=== PATIENT | male | born 1930 | race Caucasian/White ===

== ENCOUNTER 2016-03-11 11:32 | Inpatient (IN) | payer OTHER ==
--- NOTE | 2016-03-11 12:04 | CPEKG ---
Heart Rate: 90 RR Interval: 667 P-R Interval: 204 QRSD Interval: 104 QT Interval: 368 QTC Interval: 451 P [place]: 28 QRS [place]: 84 T Wave [place]: -25 EKG Severity - ABNORMAL ECG - EKG Impression: SINUS RHYTHM EKG Impression: PROBABLE ANTEROSEPTAL INFARCT, AGE INDETERM EKG Impression: BORDERLINE T ABNORMALITIES, INFERIOR LEADS Electronically Signed By: Yan Tracy 11-Mar-2016 13:33:18
[2016-03-11] MEDS ORDERED: MAALOX/LIDO/HYOSC GI COCKTAIL 55 ML BOTTLE PO ONE (12:44)
[2016-03-11] MEDS ORDERED: NS 500 ML IV ONE (12:44)
[2016-03-11 12:49] LABS: % IMMATURE GRANULYOCYTES 0.3 % (0.0-1.1); ABSOLUTE IMMATURE GRANULOCYTES 0.02 10^3/uL (0.00-0.10); ADD DIFF? NO; ADD MORPH? NO; ADD SCAN? NO; ATYPICAL LYMPHOCYTE FLAG 20 (0-99); FRAGMENT RBC FLAG 0 (0-99); HEMATOCRIT 46.8 % (40.0-51.0); HEMOGLOBIN 15.7 g/dL (13.7-17.5); LEFT SHIFT FLG 0 (0-99); LIPEMIA HEMOLYSIS FLAG 80 (0-99); MEAN CELL HEMOGLOBIN 25.9 pg (27.9-34.1); MEAN CELL HEMOGLOBIN CONCENTR. 33.5 g/dL (32.4-36.7); MEAN CELL VOLUME 77.2 fL (81.5-99.8); MEAN PLATELET VOLUME 9.2 fL (8.7-11.7); PLATELET CLUMPS FLAG 0 (0-99); PLATELET COUNT 298 10^3/uL (150-400); RED BLOOD CELL COUNT 6.06 10^6/uL (4.40-6.38); RED CELL DISTRIBUTION WIDTH 16.5 % (11.5-15.2)
[2016-03-11 13:00] LABS: ALANINE AMINOTRANSFERASE 28 IU/L (21-72); ALBUMIN 4.3 g/dL (3.5-5.0); ALKALINE PHOSPHATASE 96 IU/L (38-126); ANION GAP 13 mEq/L (8-16); ASPARTATE AMINOTRANSFERASE 21 IU/L (17-59); BILIRUBIN,TOTAL 0.7 mg/dL (0.1-1.4); BILIRUBIN-CONJUGATED 0.6 mg/dL (0.0-0.5); BILIRUBIN-UNCONJUGATED 0.1 mg/dL (0.0-1.1); CALCIUM 9.2 mg/dL (8.5-10.4); CARBON DIOXIDE 23 mEq/l (22-31); CHLORIDE 107 mEq/L (97-110); CREATININE 0.8 mg/dL (0.7-1.3); GLOMERULAR FILTRATION RATE > 60; GLUCOSE 132 mg/dL (70-100); POTASSIUM 4.1 mEq/L (3.5-5.2); SODIUM 143 mEq/L (134-144); TOTAL PROTEIN 7.8 g/dL (6.3-8.2)
[2016-03-11] MEDS ORDERED: IOPAMIDOL (ISOVUE-300) 100 ML BTL IV ONE (13:07)
[2016-03-11 13:11] LABS: TROPONIN I < 0.012 ng/mL (0-0.034)
--- NOTE | 2016-03-11 13:22 | EDPHY ---
H & P Stated Complaint: ABDOMINAL, CHEST, AND BACK PAIN SINCE 1 PM YESTERDAY Time Seen by Provider: 03/11/16 12:07 HPI/ROS: CHIEF COMPLAINT: Fatigue, heartburn, burping, abdominal pain HISTORY OF PRESENT ILLNESS: This is an 85-year-old male tells me has a history of acid reflux. He has not been bothered by his acid reflux since 2011. Sounds like he has not seen Gastroenterology for a number of years. He describes developing episodes of "reflux" with discomfort into his chest, a feeling that his esophagus is blocked, and multiple burping and urping episodes since yesterday. This has occurred 7 or 8 times. Yesterday he also had 3 brief episodes of a shooting pain on the left side of his chest. Patient also describes left-sided abdominal discomfort which he feels is similar to his diverticulitis. He reports 5 large bowel movements yesterday. No history of known coronary artery disease. Patient's last stress test was about 10 years ago. Heartburn symptoms are not accompanied by shortness of breath, palpitations, lightheadedness, or dizziness. He has had no vomiting or diarrhea. No urinary complaints. REVIEW OF SYSTEMS: Aside from elements discussed in the HPI, a comprehensive 10-point review of systems was reviewed and is negative. PAST MEDICAL HISTORY: Acid reflux, diverticulitis, hip replacement. Denies hypertension, hypercholesterolemia, or smoking. Denies diabetes. 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 VITAL SIGNS Reviewed by me. GENERAL: Slightly overweight,resting comfortably in no respiratory distress. HEENT: Atraumatic. Eyes: No icterus, no injection. Mouth: moist mucous membranes. No erythema or lesions. Neck: supple with no adenopathy. LUNGS: Clear to auscultation bilaterally, no wheezes, rhonchi or rales. CARDIAC: Regular rate and rhythm, no rubs, murmurs or gallops. ABDOMEN: No abdominal tenderness to palpation. No epigastric tenderness or right upper quadrant tenderness. Patient indicates that there was pain in the left lower quadrant which is now resolved. Bowel sounds normal. BACK: No CVA tenderness. EXTREMITIES: No trauma. No edema. Range of motion is normal throughout. NEURO: Alert and oriented, grossly nonfocal. SKIN: Warm and dry, no rash. PSYCHIATRIC: Normal mentation, no agitation. - Personal History Current Tetanus/Diphtheria Vaccine: No - Medical/Surgical History Hx Asthma: Yes Hx Chronic Respiratory Disease: No Hx Diabetes: No Hx Cardiac Disease: No Hx Renal Disease: No Hx Cirrhosis: No Hx Alcoholism: No Hx HIV/AIDS: No Hx Splenectomy or Spleen Trauma: No Other PMH: R HIP REPLACEMENT, DIVERTICULITIS, - Social History Smoking Status: Never smoked Constitutional: Initial Vital Signs Temperature (C) 36.9 C 03/11/16 11:47 Heart Rate 94 03/11/16 11:47 Respiratory Rate 16 03/11/16 11:47 Blood Pressure 122/94 H 03/11/16 11:47 O2 Sat (%) 93 03/11/16 11:47 O2 Delivery Mode Room Air Allergies/Adverse Reactions: Sulfa (Sulfonamide Antibiotics) Allergy (Verified 03/11/16 11:51) Home Medications: Medication Instructions Recorded ALPRAZolam [Xanax 0.25 MG (*)] 0.125 mg PO HS PRN 03/16/15 Levothyroxine [Synthroid 200 mcg 200 mcg PO DAILY06 03/16/15 (*)] Nortriptyline HCl [Pamelor 25 mg 25 mg PO HS 03/16/15 (*)] Docusate Sodium [Colace 100 MG (*)] 100 mg PO BID #60 cap 04/16/15 Aspirin EC [Aspirin EC 81 mg (*)] 81 mg PO DAILY 03/11/16 Ibuprofen [Motrin (*)] 400 mg PO HS 03/11/16 Testosterone [ANDROGEL 1% 5gm pkt 5 gm TD DAILY 03/11/16 (*)] oxyCODONE/APAP 5/325 [Percocet 1 tab PO DAILY PRN 03/11/16 5/325 (*)] Acetaminophen [Tylenol 325mg (*)] 650 mg PO Q4HRS PRN #0 tab 03/13/16 Medical Decision Making - Diagnostics EKG Interpretation: 12-LEAD EKG: Please see the full report in [facility]. My interpretation: Sinus rhythm, borderline T-wave abnormalities inferiorly Imaging: Results: CT scan of the abdomen pelvis was obtained. I viewed the images independently on the PACS system. I discussed the results of the study with the radiologist. Impression: Small bowel obstruction in the distal jejunum. Please see the full radiology report. ED Course/Re-evaluation: 85-year-old male presenting with a constellation of symptoms including acid reflux", burping, burping, and left-sided abdominal pain. Patient is also complaining of fatigue which is unusual for him. Patient's EKG demonstrates sinus rhythm with borderline T-wave abnormalities inferiorly. Laboratory evaluation is largely unremarkable with normal lipase, normal troponin, normal LFTs, normal CBC. Abdominal CT scan: Small bowel obstruction per Dr. Aguirre. CT scan results explained to the patient and his . Dr. Chet Walker was consulted. He evaluated the patient in the emergency department as well as reviewed the CT findings. Dr. Walker will admit the patient to the hospital for further observation of his abdominal discomfort, belching, nausea. Differential Diagnosis: After obtaining the patient's history and performing an examination, differential diagnosis considered included but was not limited to bowel obstruction, pancreatitis, reflux, cholecystitis, gastritis, coronary artery disease, diverticulitis, ileus. - Data Points Laboratory Results: Laboratory Results 03/11/16 12:01 03/12/16 05:26 Medications Given: Discontinued Medications Alprazolam (Xanax) 0.125 mg PO HS PRN PRN Reason: Sleep/Insomnia Last Admin: 03/11/16 21:26 Dose: 0.125 mg Aspirin Buffered (Aspirin Ec) 81 mg PO DAILY [place] Stop: 09/08/16 08:59 Last Admin: 03/13/16 08:24 Dose: 81 mg Sodium Chloride (Ns) 500 mls @ 0 mls/hr IV ONCE ONE PRN Reason: As Directed Stop: 03/11/16 12:45 Last Admin: 03/11/16 13:11 Dose: 500 mls Potassium Chloride/Sodium Chloride (Ns W/ 20 Kcl/L) 1,000 mls @ 50 mls/hr IV CONT [place] Stop: 09/07/16 15:59 Last Admin: 03/11/16 19:53 Dose: 1,000 mls Sodium Chloride (Ns) 500 mls @ 0 mls/hr IV ONCE ONE PRN Reason: As Directed Stop: 03/12/16 15:31 Last Admin: 03/12/16 07:30 Dose: 500 mls Sodium Chloride (Ns) 500 mls @ 500 mls/hr IV ONCE ONE Stop: 03/12/16 17:59 Last Admin: 03/12/16 16:44 Dose: 500 mls Miscellaneous Medication (Gi Cocktail) 55 ml PO EDNOW ONE Stop: 03/11/16 12:45 Last Admin: 03/11/16 13:11 Dose: 55 ml Pantoprazole Sodium (Protonix) 40 mg PO ONCE ONE Stop: 03/11/16 15:52 Last Admin: 03/11/16 17:48 Dose: 40 mg Departure - Departure Disposition: [facility] Inpatient Acute Clinical Impression: Abdominal pain, Left lower quadrant abdominal tenderness, Anorexia, rule out bowel obstruction Condition: Good
--- NOTE | 2016-03-11 13:48 | CT ---
CT Scan of the Abdomen and Pelvis (With Contrast) 13:20 hours Clinical Indications: Abdominal pain. History of diverticulitis. Technique: Administration of 90 mL of Isovue-300 IV contrast, helical CT images were performed from t he diaphragm to the symphysis pubis. Images were reconstructed down to 1.25 mm slice thickness. Dose reduction techniques were utilized. Findings: There is prominent fluid in the stomach. The mid and distal jejunum is dilated measuring up to 4.1 cm in diameter. A discrete transition zone is not identified but there appear to be 2 or 3 ar eas of focal small bowel narrowing without mass. There is no adenopathy. There is no free air or free fluid. The lung bases are clear. The liver, spleen, gallbladder, bile ducts, pancreas, adrenals, and kidneys are normal in appearance. The aorta tapers normally. Images through the pelvis demonstrate no masses, free fluid, or free air. There is diverticulosis pre dominating in the descending and sigmoid colons without evidence for diverticulitis. There is a sasha l short appendix. Urinary bladder is unremarkable. The soft tissues are normal in appearance. There i s atherosclerotic change of the normal sized abdominal aorta. The common iliac arteries are tortuous and mildly dilated, the right measuring 21 mm in diameter and the left 19 mm in diameter. 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 The patient h as a right hip replacement. Impression: 1. Early or partial distal jejunal obstruction. This patient may benefit from an NG tube. 2. Diverticulosis without evidence of diverticulitis. Results called to Dr. Casey.
--- NOTE | 2016-03-11 13:58 | DX ---
PA and lateral chest x-ray 1237 hours. History: Chest pain and dizziness. Findings: Comparison to August 29, 2011. Heart size and pulmonary vasculature are within normal limits. There is no consolidation, effusion, o r pneumothorax. Degenerative changes are present mid to lower thoracic spine. Impression: 1. No active cardiopulmonary disease seen. No change since prior study.
[2016-03-11] MEDS ORDERED: ONDANSETRON 4 MG/2 ML VIAL IVP PRN (15:46)
[2016-03-11] MEDS ORDERED: ACETAMINOPHEN 325 MG TAB PO PRN (15:46)
[2016-03-11] MEDS ORDERED: ONDANSETRON DISINTEGRATING 4 MG TAB PO PRN (15:46)
[2016-03-11] MEDS ORDERED: PANTOPRAZOLE SODIUM 40 MG TAB PO ONE (15:51)
[2016-03-11] MEDS ORDERED: NS W/ 20 KCl/L 1,000 ML IV SCH (16:00)
[2016-03-11] MEDS ORDERED: ALPRAZolam 0.25 MG TAB PO PRN (16:14)
--- NOTE | 2016-03-11 16:21 | GHP ---
[f rep st] HISTORY AND PHYSICAL DATE OF ADMISSION: 03/11/2016 HISTORY OF PRESENT ILLNESS: This is an 85-year-old gentleman, who presents with 24 hours of mid to l eft-sided abdominal pain and reflux. The patient has had previous history of small-bowel obstruction treated conservatively 5 years ago, history of diverticulosis managed non operatively. His pain and problems began at noon yesterday, and he has had continued reflux with mild anorexia since then. CT scan shows a possible transition point in the mid jejunum. The patient denies any nausea or vomitin g. He has had 4 or 5 bowel movements today. PAST MEDICAL HISTORY: Significant for hypothyroidism, mild chronic pain, diverticulosis, anxiety/dep ression. PAST SURGICAL HISTORY: Includes appendectomy remotely. FAMILY HISTORY: Noncontributory. 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 The patie nt denies any alcohol or drug use. ALLERGIES: Sulfa, for which he gets a rash. MEDICATIONS AT HOME: Alprazolam 0.25 mg q.h.s. p.r.n., aspirin 81 mg p.o. daily, Colace 100 mg p.o. b.i.d., ibuprofen 400 mg q.h.s. p.r.n., levothyroxine 200 mg p.o. daily, nortriptyline 25 mg p.o. q.h .s., testosterone 5 g transdermal daily, and oxycodone p.r.n. REVIEW OF SYSTEMS: NEUROLOGIC: Significant for having some mild change in vision last night, which has cleared. GENITOURINARY: Mild urinary retention for which he sees a urologist on a regular basis. He was otherwise in his baseline state of health until yesterday. Review of systems otherwise negati ve. EXAM: VITAL SIGNS: The patient has temperature of 36.9, heart rate of 87, blood pressure 121/96, re spiratory rate of 16, saturating 94% on room air. HEENT: Sclerae anicteric. His pupils are 2 mm, equal. Extraocular motions intact. His oropharynx is slightly dry. NECK: No JVD, thyromegaly, supraclavicular adenopathy. LUNGS: Clear bilaterally. HEART: Regular heart tones, S1 and S2. ABDOMEN: Soft, minimally tender in the left lower quadrant. No rebound. No masses. Well-healed schmitt rgical scar from previous appendectomy. EXTREMITIES: Without edema. He has 2+/2+ radial, brachial, carotid, femoral, and dorsalis pedis pul ses. SKIN: He has normal skin turgor and tone. NEUROLOGIC: He is alert and oriented. He walks well with the aid of a cane. He otherwise looks goo d for his stated age. IMPRESSION: After reviewing all of his laboratory studies, is that of a small bowel obstruction, mil d hyperglycemia, blood sugar of 132, microcytic anemia, longstanding. PLAN: Admit. Clear liquids. Observation. Serial exams. Small bowel follow through if he does not clear up by tomorrow. Protonix for his history of GERD. No DVT prophylaxis is necessary at this ti ia. /[id number]/MODL
[2016-03-12 06:12] LABS: ANION GAP 8 mEq/L (8-16); CARBON DIOXIDE 23 mEq/l (22-31); CHLORIDE 108 mEq/L (97-110); CREATININE 0.7 mg/dL (0.7-1.3); GLOMERULAR FILTRATION RATE > 60; GLUCOSE 138 mg/dL (70-100); POTASSIUM 4.2 mEq/L (3.5-5.2); SODIUM 139 mEq/L (134-144)
[2016-03-12 07:38] VITALS: RESP 16
--- NOTE | 2016-03-12 08:05 | SOAPPROG ---
SOAP Progress Note Assessment/Plan: Assessment/Plan: 85 yo man initially admitted for s/s of sbo Now with clinical signs of gastroenteritis. Vomiting and diarrhea overnight Unable to tolerate po OOB to commode RRR CTA Abd soft min tender LLQ no rebound No peripheral edema K4.2 Cr ).7 BS 130s Continue hydration advance diet as able Anticipate additional 24 -48 hr stay 500ml NS bolus 03/12/16 08:02 Objective: Vital Signs Temp Pulse Resp BP Pulse Ox 36.9 C 86 16 122/77 H 96 03/12/16 07:36 03/12/16 07:36 03/12/16 07:36 03/12/16 07:36 03/12/16 07:36 Laboratory Results 03/12/16 05:26 03/11/16 03/12/16 03/13/16 05:59 05:59 05:59 Intake Total 1720 Balance 1720 ICD10 Worksheet Patient Problems: Problems Problem Status Diagnosed Abdominal pain Acute Anorexia Acute Left lower quadrant abdominal tenderness Acute Primary localized osteoarthritis of right hip Acute
[2016-03-12] MEDS: ASPIRIN EC 81 MG TAB PO SCH (09:23)
[2016-03-12 15:23] VITALS: PULSE 78
[2016-03-12] MEDS ORDERED: NS 500 ML IV ONE ×2 (15:30→17:00)
[2016-03-13 08:23] VITALS: BP 130/81; TEMP 98; O2SAT 96
[2016-03-13] MEDS: ASPIRIN EC 81 MG TAB PO SCH (08:24)
--- NOTE | 2016-03-13 09:44 | SOAPPROG ---
SOAP Progress Note Assessment/Plan: Assessment:feeling better. no further nausea or vomiting. bm normalizing. avss. abd dist, soft, nontender. doing better. home today. Plan: 03/13/16 09:42 Objective: Vital Signs Temp Pulse Resp BP Pulse Ox 36.6 C 78 16 130/81 H 96 03/13/16 08:22 03/13/16 08:22 03/13/16 08:22 03/13/16 08:22 03/13/16 08:22 03/12/16 03/13/16 03/14/16 05:59 05:59 05:59 Intake Total 2700 Balance 2700 ICD10 Worksheet Patient Problems: Problems Problem Status Diagnosed Abdominal pain Acute Anorexia Acute Left lower quadrant abdominal tenderness Acute Primary localized osteoarthritis of right hip Acute
--- NOTE | 2016-03-13 10:00 | GDS ---
[f rep st] DISCHARGE SUMMARY REASON FOR ADMISSION: Abdominal pain. HOSPITAL COURSE: 85-year-old male who presented to the emergency room with a 24 -hour history of progressive abdominal pain. Imaging studies disclosed concerns for a possible partial small bowel obstruction. His clinical story was more consistent with a gastroenteritis. He was admitted for serial abdominal exams, fluid resuscitation, and pain control. He had a rapidly improving hospital course. He was discharged to home on the in improved condition, tolerating a regular diet without resolution of his symptoms. He will be seen in followup on an as-needed basis by the surgical service. He is to resume all pre- hospital medications. He was given a regular diet. Full instructions were explained prior to leaving. /[id number]/MODL MTDD
== END 2016-03-13 10:40 | disposition home or self-care (01) | DRG 392 ==
LOC: F1N 15:24 → OBSVTOIN 03-12 08:01
PROVIDERS: ADMIT Surgery; ATTEND Surgery
DX: K52.9 Noninfective gastroenteritis and colitis, unspecified (principal); E03.9 Hypothyroidism, unspecified
CPT/HCPCS: G0378; Q9967

== ENCOUNTER 2016-03-21 17:41 | Emergency (ER) | payer OTHER ==
[2016-03-21] MEDS ORDERED: OXYCODONE/APAP 5/325 TAB PO ONE (18:27)
--- NOTE | 2016-03-21 18:27 | EDPHY ---
H & P Time Seen by Provider: 03/21/16 18:04 HPI/ROS: CHIEF COMPLAINT: Severe right wrist and shoulder pain HISTORY OF PRESENT ILLNESS: 85-year-old male presents with severe right wrist and shoulder pain. 3 days ago, he went to physical therapy and he did some exercises with his right shoulder. Since then he has had gradually increasing right shoulder pain. The pain is moderate and is temporarily relieved with oxycodone. This morning he developed right wrist pain, which seems to be unrelated to the right shoulder pain. The right wrist pain is severe and increases with any movement of his right wrist. Minimal relief with oxycodone and ibuprofen. He was recently admitted with gastroenteritis. No prior history of gout or joint infection. No fever. REVIEW OF SYSTEMS: Constitutional: No fever, no chills Eyes: No visual changes ENT: No sore throat Respiratory: No cough, no shortness of breath Cardiac: No chest pain Gastrointestinal: No nausea, no vomiting, no abdominal pain Genitourinary: No hematuria, no dysuria Skin: No rash Neurological: No headache, no numbness, no weakness Psychiatric: No depression Past Medical/Surgical History: Right hip replacement Social History: Smoking Status: Never smoked Physical Exam: General Appearance: Alert, pleasant Eyes: Pupils equal and round, no conjunctival pallor ENT, Mouth: Mucous membranes moist Neck: Normal inspection Respiratory: Lungs are clear to auscultation Cardiovascular: Regular rate and rhythm Gastrointestinal: Abdomen is soft and nontender Neurological: A&O, nonfocal, normal gait Skin: Warm and dry, no rash Extremities: right upper extremity-normal inspection, limited right shoulder range of motion, but no tenderness over the shoulder; right elbow--range of motion without pain; right wrist-very faint erythema over the distal ulnar styloid process, mild swelling, pain with range of motion of the right wrist Vascular: 2+ radial pulses, capillary refill brisk Psychiatric: Mood and affect normal Constitutional: Initial Vital Signs Temperature (C) 36.6 C 03/21/16 17:46 Heart Rate 86 03/21/16 17:46 Respiratory Rate 18 03/21/16 17:46 Blood Pressure 152/88 H 03/21/16 17:46 O2 Sat (%) 94 03/21/16 17:46 O2 Delivery Mode Room Air Allergies/Adverse Reactions: Sulfa (Sulfonamide Antibiotics) Allergy (Unknown, Verified 03/21/16 17:46) Home Medications: Medication Instructions Recorded ALPRAZolam [Xanax 0.25 MG (*)] 0.125 mg PO HS PRN 03/16/15 Levothyroxine [Synthroid 200 mcg 200 mcg PO DAILY06 03/16/15 (*)] Nortriptyline HCl [Pamelor 25 mg 25 mg PO HS 03/16/15 (*)] Docusate Sodium [Colace 100 MG (*)] 100 mg PO BID #60 cap 04/16/15 Aspirin EC [Aspirin EC 81 mg (*)] 81 mg PO DAILY 03/11/16 Ibuprofen [Motrin (*)] 400 mg PO HS 03/11/16 Testosterone [ANDROGEL 1% 5gm pkt 5 gm TD DAILY 03/11/16 (*)] oxyCODONE/APAP 5/325 [Percocet 1 tab PO DAILY PRN 03/11/16 5/325 (*)] Acetaminophen [Tylenol 325mg (*)] 650 mg PO Q4HRS PRN #0 tab 03/13/16 oxyCODONE/APAP 5/325 [Percocet 1 - 2 tab PO Q4 PRN #20 tab 03/21/16 5/325 (*)] Medical Decision Making - Diagnostics Imaging: X-ray of the right shoulder and wrist independently reviewed by me reveals no acute fracture. Procedures: Procedure: Arthrocentesis right wrist Indication: Evaluation for the possibility of septic joint. Risks, benefits, alternatives of the procedure were discussed with the patient and consent obtained. The patient was prepped and draped in the usual sterile fashion over the right wrist joint. Local anesthesia was provided with 1% lidocaine. The joint space was entered with a 18 gauge needle and 3 cc of straw-colored fluid was obtained. There were no complications. The procedure was performed by myself. ED Course/Re-evaluation: Clinical presentation concerning for septic arthritis of the right wrist. Leukocytosis noted. X-ray is negative. Joint aspiration by me without complications. Synovial fluid reveals crystals, consistent with pseudogout. There was insufficient fluid to run a cell count; culture pending. Doubt associated infection, though will need to await cx results. Results were discussed with the patient and his . Toradol 15 mg IV given. The patient was placed in a Velcro volar wrist splint. Neurovasc intact after application. Percocet dispensed. He was instructed to follow up with his primary care physician. Has ortho appt, suspect shoulder pain is secondary to shoulder strain after PT and unreleated to pseudogout of wrist. Differential Diagnosis: Differential diagnosis includes does not limited to cellulitis, septic arthritis , gout, osteomyelitis. - Data Points Laboratory Results: Laboratory Results 03/21/16 18:30 03/21/16 18:30 Microbiology Results: MICROBIOLOGY 03/21/16 19:20 Wrist - Other Gram Stain - Final 03/21/16 19:20 Wrist - Other Body Fluid Culture - Preliminary Medications Given: Discontinued Medications Ketorolac Tromethamine (Toradol) 15 mg IVP EDNOW ONE Stop: 03/21/16 20:05 Last Admin: 03/21/16 20:27 Dose: 15 mg Oxycodone/Acetaminophen (Percocet 5/325) 1 tab PO EDNOW ONE Stop: 03/21/16 18:28 Last Admin: 03/21/16 18:33 Dose: 1 tab Oxycodone/Acetaminophen (Percocet 5/325mg Prepack#4) 1 btl TAKEHOME EDNOW ONE Stop: 03/21/16 20:33 Last Admin: 03/21/16 20:40 Dose: 1 btl Departure - Departure Disposition: Home, Routine, Self-Care Clinical Impression: Pseudogout of right wrist Condition: Good Instructions: Pseudogout (ED), Oxycodone/Acetaminophen (By mouth) Additional Instructions: Ibuprofen 600 mg 3-4 times daily while the pain persists. Take Percocet 1 tablet as needed every 4 hours for pain Referrals: Tanya Kahn MD [Primary Care Provider] - As per Instructions Prescriptions: oxyCODONE/APAP 5/325 [Percocet 5/325 (*)] 1 - 2 tab PO Q4 PRN #20 tab PRN Reason: pain
[2016-03-21 18:43] LABS: % IMMATURE GRANULYOCYTES 0.3 % (0.0-1.1); ABSOLUTE IMMATURE GRANULOCYTES 0.04 10^3/uL (0.00-0.10); ADD DIFF? NO; ADD MORPH? NO; ADD SCAN? NO; ATYPICAL LYMPHOCYTE FLAG 10 (0-99); FRAGMENT RBC FLAG 0 (0-99); HEMATOCRIT 44.4 % (40.0-51.0); HEMOGLOBIN 14.9 g/dL (13.7-17.5); LEFT SHIFT FLG 0 (0-99); LIPEMIA HEMOLYSIS FLAG 80 (0-99); MEAN CELL HEMOGLOBIN 25.7 pg (27.9-34.1); MEAN CELL HEMOGLOBIN CONCENTR. 33.6 g/dL (32.4-36.7); MEAN CELL VOLUME 76.7 fL (81.5-99.8); MEAN PLATELET VOLUME 8.8 fL (8.7-11.7); PLATELET CLUMPS FLAG 0 (0-99); PLATELET COUNT 367 10^3/uL (150-400); RED BLOOD CELL COUNT 5.79 10^6/uL (4.40-6.38); RED CELL DISTRIBUTION WIDTH 15.6 % (11.5-15.2)
--- NOTE | 2016-03-21 18:46 | DX ---
1. Right Shoulder , 3 Views History: Pain without trauma. Findings: There is severe osteoarthritic narrowing of the right AC joint. The humeral head is well ro unded and normally located. No fracture or dislocation is identified. Incidentally noted is facet de generative change in the right cervical spine. There is no soft tissue calcification adjacent to the shoulder. Overall mineralization is normal. Impression: 1. AC joint arthritis 2. Might the patient symptoms be referred from the cervical spine? 2. Right Wrist, 4 views including a navicular view History: Pain without trauma. Findings: No fracture or dislocation is identified. There is chondrocalcinosis of the triangular fib rocartilage and of the radial carpal and intercarpal cartilages. There is osteoarthritic change at th e base of the first metacarpal and involving the joint between the greater and lesser multangular bon es. There are 2 corticated ossicles posterior to the proximal carpal row and small ossicles along th e palmar aspect of the wrist that are likely the sequelae of remote trauma.. Incidentally noted is a small exostosis projecting laterally off the distal radial shaft. There is osteoarthritic narrowing o f the first metacarpal phalangeal joint and interphalangeal joint of the thumb. There is a prominent spur of the radial side of the fifth metacarpal head. No erosions are seen. Overall mineralization is normal. Impression: 1. Prominent chondrocalcinosis. Evaluate for CPPD or other hypercalcemic states. 2. Likely remote trauma to the wrist. 3. Osteoarthritic changes described above.
[2016-03-21 19:03] LABS: ANION GAP 14 mEq/L (8-16); CALCIUM 9.4 mg/dL (8.5-10.4); CARBON DIOXIDE 19 mEq/l (22-31); CHLORIDE 104 mEq/L (97-110); CREATININE 0.7 mg/dL (0.7-1.3); GLOMERULAR FILTRATION RATE > 60; GLUCOSE 121 mg/dL (70-100); POTASSIUM 4.8 mEq/L (3.5-5.2); SODIUM 137 mEq/L (134-144)
[2016-03-21 19:08] LABS: SEDIMENTATION RATE 14 MM/HR (0-20)
[2016-03-21 19:46] VITALS: RESP 16
[2016-03-21] MEDS ORDERED: KETOROLAC 30 MG/1 ML SDV IVP ONE (20:04)
[2016-03-21] MEDS ORDERED: OXYCODONE/APAP 5/325MG PREPACK#4 BTL TAKEHOME ONE (20:32)
[2016-03-21 20:55] VITALS: BP 129/84; PULSE 79; TEMP 97.9; O2SAT 93
== END 2016-03-21 21:08 | disposition home or self-care (01) ==
PROC: 0R9N3ZZ Drainage of Right Wrist Joint, Percutaneous Approach (ICD-10-PCS; principal; 2016-03-21)
DX: M10.9 Gout, unspecified (principal); Z79.82 Long term (current) use of aspirin
CPT/HCPCS: 20605; 73030; 73110; 96374; 99284; J1885; L3908

== ENCOUNTER 2016-07-19 11:12 | Emergency (ER) | payer OTHER ==
[2016-07-19 11:21] VITALS: TEMP 98.2
[2016-07-19 12:16] VITALS: RESP 16
[2016-07-19] MEDS ORDERED: HYDROmorphONE/DILAUDID 1 MG/ML SYR IVP ONE (12:32)
[2016-07-19] MEDS ORDERED: KETOROLAC 30 MG/1 ML SDV IVP ONE (12:32)
[2016-07-19] MEDS ORDERED: NS 500 ML IV ONE (12:32)
[2016-07-19] MEDS ORDERED: DEXAMETHASONE 10 MG/ML VIAL IVP ONE (12:33)
--- NOTE | 2016-07-19 14:41 | EDPHY ---
H & P Time Seen by Provider: 07/19/16 12:01 HPI/ROS: HPI Right-sided sciatica pain. 85-year-old male by private vehicle with his . This patient has a history of a right hip replacement 15 months ago. He has been using a cane recently for the last couple of weeks. Because of this he has been leaning more on his left side. Prior to this he was using a walker. He describes having a sciatica which originates from his right buttock and radiates down the posterior and lateral aspect of his right thigh to his right mid calf he reports that this has been bothering him since he started using the cane. No history of acute fall or other traumatic injury. He has had no bowel or bladder incontinence. No focal loss of sensation or weakness in his lower extremities. No fever. ROS: Constitutional: No fever, no chills. No weakness. Eyes: No discharge. No changes in vision. ENT: No sore throat. No nasal congestion or rhinorrhea. Respiratory: No cough. No shortness of breath. Cardiac: No chest pain, no palpitations. Gastrointestinal: No abdominal pain, no vomiting, no diarrhea. Genitourinary: No hematuria. No dysuria or increased frequency with urination. Musculoskeletal: No back pain. No neck pain. As above. Skin: No rashes. Neurological: No headache. No focal weakness or altered sensation. Past medical history: Right hip replacement, right knee replacement, diverticulitis, tonsillectomy, appendectomy, prostatic hypertrophy. Dr. Toney is his active directory specialist. Social history: Here with his . Nonsmoker. [place]. No alcohol. Physical Exam: General Appearance: Alert, no distress. This patient is responding to questions appropriately and in full sentences. This patient appears well- hydrated and well-nourished. Eyes: Pupils equal and round no pallor or injection. No lid edema, erythema or injection. Back exam: No midline thoracic, lumbar, sacral tenderness on palpation. No sacroiliac tenderness on palpation. Some vague and mild tenderness right upper buttock. No soft tissue changes associated with this. He has a negative same side and cross-side straight leg raise test. He is neurologically intact in all myotomes in dermatomes of the bilateral lower extremities. Gastrointestinal: Abdomen is soft and nontender, no masses, bowel sounds normal. No focal tenderness at McBurney's point. No Olmos sign. Neurological: Motor sensory function is grossly intact. Cranial nerves are normal. Gait is normal. Skin: Warm and dry, no rashes. Musculoskeletal: Neck is supple and nontender. Extremities are symmetrical. All joints range without pain or impingement. Psychiatric: No agitation. No depression. Database: EKG: Imaging: Procedures: Emergency department course: IV placed. He was placed on a case monitor. He was given 0.5 mg of IV hydromorphone, 30 mg of IV Toradol and 10 mg of IV Decadron. He has no history of renal dysfunction or contraindications to NSAIDs. 2:20 p.m., patient re-evaluated. He is doing much better at this time. His pain is well controlled. He is able to get up from the gurney ambulate with his walker. I advised that he uses walker instead of a cane to maintain obtain ate symmetry instability of his pelvis. Plan will be to have him follow up with [facility] for re-evaluation and further management. Return to emergency department precautions discussed with the 2 of them. All of their questions were answered. He was discharged from the emergency department in good condition. Differential Diagnosis: The differential diagnosis on this patient includes but is not limited to sciatica. Malignancy with pathologic fracture, spinal cord compression syndrome , cauda equina syndrome, AAA acute radiculopathy unlikely. This represents a partial list of diagnoses considered. These considerations are based on history , physical exam, past history, reassessment and diagnostic testing. Smoking Status: Never smoked Constitutional: Initial Vital Signs Temperature (C) 36.8 C 07/19/16 11:18 Heart Rate 82 07/19/16 11:18 Respiratory Rate 18 07/19/16 11:18 Blood Pressure 139/82 H 07/19/16 11:18 O2 Sat (%) 95 07/19/16 11:18 O2 Delivery Mode Room Air Allergies/Adverse Reactions: Sulfa (Sulfonamide Antibiotics) Allergy (Unknown, Verified 07/19/16 11:18) Home Medications: Medication Instructions Recorded ALPRAZolam [Xanax 0.25 MG (*)] 0.125 mg PO HS PRN 03/16/15 Levothyroxine [Synthroid 200 mcg 200 mcg PO DAILY06 03/16/15 (*)] Nortriptyline HCl [Pamelor 25 mg 25 mg PO HS 03/16/15 (*)] Docusate Sodium [Colace 100 MG (*)] 100 mg PO BID #60 cap 04/16/15 Aspirin EC [Aspirin EC 81 mg (*)] 81 mg PO DAILY 03/11/16 Ibuprofen [Motrin (*)] 400 mg PO HS 03/11/16 Testosterone [ANDROGEL 1% 5gm pkt 5 gm TD DAILY 03/11/16 (*)] oxyCODONE/APAP 5/325 [Percocet 1 tab PO DAILY PRN 03/11/16 5/325 (*)] Acetaminophen [Tylenol 325mg (*)] 650 mg PO Q4HRS PRN #0 tab 03/13/16 oxyCODONE/APAP 5/325 [Percocet 1 - 2 tab PO Q4 PRN #20 tab 03/21/16 5/325 (*)] Cyclobenzaprine [Flexeril 10 MG 10 mg PO TID #14 tab 07/19/16 (*)] Medical Decision Making - Data Points Medications Given: Discontinued Medications Dexamethasone (Decadron Injection) 10 mg IVP EDNOW ONE Stop: 07/19/16 12:34 Last Admin: 07/19/16 13:26 Dose: 10 mg Hydromorphone HCl (Dilaudid) 0.5 mg IVP EDNOW ONE Stop: 07/19/16 12:33 Last Admin: 07/19/16 13:26 Dose: 0.5 mg Sodium Chloride (Ns) 500 mls @ 0 mls/hr IV ONCE ONE; Wide Open PRN Reason: Protocol Stop: 07/19/16 12:33 Last Admin: 07/19/16 13:26 Dose: 500 mls Ketorolac Tromethamine (Toradol) 30 mg IVP EDNOW ONE Stop: 07/19/16 12:33 Last Admin: 07/19/16 13:26 Dose: 30 mg Departure - Departure Disposition: Home, Routine, Self-Care Clinical Impression: Sciatica Condition: Good Instructions: Sciatica (ED) Additional Instructions: Read and follow provided instructions. Follow-up with [facility] for re-evaluation and further management next 1-2 days as discussed. Take medication as prescribed prescribed only. Do not mix narcotics or Xanax or other sedative medications with Flexeril/cyclobenzaprine. Return to the emergency department for worsening pain, fever, bowel or bladder incontinence, loss of sensation or weakness in her lower extremities or other serious concerns. Referrals: Sarah Jaeger MD [Primary Care Provider] - As per Instructions Prescriptions: Cyclobenzaprine [Flexeril 10 MG (*)] 10 mg PO TID #14 tab
[2016-07-19 15:00] VITALS: BP 123/90; PULSE 77; O2SAT 95
== END 2016-07-19 15:00 | disposition home or self-care (01) ==
DX: M54.31 Sciatica, right side (principal); Z79.82 Long term (current) use of aspirin
CPT/HCPCS: 96361; 96374; 96375; 99284; J1170; J1885

== ENCOUNTER → 2016-07-20 | Outpatient (CLI) | payer OTHER | LOC: FIMAGING 09:21 | PROVIDERS: ATTEND Physician Assistant | DX: M25.551 Pain in right hip (principal); Z96.641 Presence of right artificial hip joint | CPT/HCPCS: 78315; A9503 ==

== ENCOUNTER → 2016-07-21 | Outpatient (CLI) | payer OTHER | LOC: FIMAGING 14:01 | PROVIDERS: ATTEND Family Medicine | DX: M51.36 Other intervertebral disc degeneration, lumbar region (principal); M48.06 Spinal stenosis, lumbar region; R10.30 Lower abdominal pain, unspecified; R26.2 Difficulty in walking, not elsewhere classified ==

== ENCOUNTER 2016-08-03 10:00 | Inpatient (IN) | payer OTHER ==
[~2016-08-03 10:00] MED LIST: TRANEXAMIC ACID 3,000 MG/50 ML BAG IRR ONE
[2016-08-03] MEDS ORDERED: FAMOTIDINE 20 MG TAB PO ONE ×2 (11:35→13:00)
[2016-08-03] MEDS ORDERED: ceFAZolin 2 GM/DEXTROSE 100 ML IV ONE (11:35)
[2016-08-03] MEDS ORDERED: ROPIVACAINE 0.2% 80 MG, EPINEPHrine 0.2 MG, KETOROLAC TROMETHAMINE 30 MG in BAG 0 ML IU ONE (11:35)
[2016-08-03] MEDS ORDERED: ACETAMINOPHEN 325 MG TAB PO ONE ×2 (11:35→13:00)
[2016-08-03] MEDS ORDERED: DEXAMETHASONE 4 MG/ML VIAL IVP ONE ×2 (11:35→13:00)
[2016-08-03] MEDS ORDERED: NORTRIPTYLINE HCL 25 MG CAP PO PRN (11:35)
[2016-08-03] MEDS ORDERED: TRANEXAMIC ACID 3,000 MG in NS 50 ML IRR ONE ×2 (11:35→13:00)
[2016-08-03] MEDS ORDERED: LR 1,000 ML IV ONE (11:37)
[2016-08-03] MEDS ORDERED: LIDOCAINE 1% 2 ML INJ ID PRN (11:37)
--- NOTE | 2016-08-03 11:56 | PDHPUP ---
History & Physical Update H&P update statement: This history and physical update is based on an assessment of the patient which was completed after admission or registration (within 24 hours), but prior to the surgery/procedure. H&P update: H&P reviewed & patient examined, no change in patient's condition since H&P completed
--- NOTE | 2016-08-03 12:17 | PDANEPAE ---
ANE History of Present Illness pt presents for LHA revision ANE Past Medical History - Cardiovascular History Hx Hypertension: No Hx Arrhythmias: No Hx Chest Pain: No Hx Coronary Artery / Peripheral Vascular Disease: No Hx CHF / Valvular Disease: No Hx Palpitations: No - Pulmonary History Hx COPD: Yes Hx Asthma/Reactive Airway Disease: No Hx Recent Upper Respiratory Infection: No Hx Oxygen in Use at Home: No - Neurologic History Hx Cerebrovascular Accident: No Hx Seizures: No Hx Dementia: No - Endocrine History Hx Diabetes: No - Renal History Hx Renal Disorders: No - Liver History Hx Hepatic Disorders: No - Neurological & Psychiatric Hx Hx Neurological and Psychiatric Disorders: No - Cancer History Hx Cancer: Yes - Congenital Disorder History Hx Congenital Disorders: No - GI History Hx Gastrointestinal Disorders: No - Chronic Pain History Chronic Pain: No ANE Review of Systems - Exercise capacity METS (RN): 4 METS ANE Patient History - Allergies Allergies/Adverse Reactions: Sulfa (Sulfonamide Antibiotics) Allergy (Unknown, Verified 07/19/16 11:18) - Home Medications Home Medications: Docusate Sodium [Colace 100 MG (*)] 100 mg PO BID 07/25/16 [Last Taken Unknown] Ibuprofen [Advil] 800 mg PO Q8H PRN 07/25/16 [Last Taken Unknown] Levothyroxine [Synthroid 200 mcg (*)] 200 mcg PO DAILY06 07/25/16 [Last Taken Unknown] Nortriptyline HCl [Pamelor 25 mg (*)] 25 mg PO HS PRN 07/25/16 [Last Taken Unknown] Testosterone [Testim] 5 gm TD DAILY 07/25/16 [Last Taken Unknown] oxyCODONE/APAP 5/325 [Percocet 5/325 (*)] 2 tab PO Q6H PRN 07/25/16 [Last Taken Unknown] - Smoking Hx Smoking Status: Never smoked ANE Labs/Vital Signs - Vital Signs Height: 180.34 cm Weight: 92.986 kg ANE Physical Exam - Airway Mallampati Score: Class 2 Mouth exam: normal dental/mouth exam - Pulmonary Pulmonary: no respiratory distress - Cardiovascular Cardiovascular: regular rate and rhythym ANE Anesthesia Plan Anesthesia Plan: general endotracheal anesthesia (rba discussed, patient agrees to proceed. )
[2016-08-03] MEDS ORDERED: fentaNYL 100 MCG/2 ML INJ ONE ×3 (12:20→14:50)
[2016-08-03] MEDS ORDERED: PROPOFOL 200 MG/20 ML VIAL ONE ×2 (12:21→14:13)
[2016-08-03] MEDS ORDERED: ROCURONIUM 50 MG/5 ML VIAL ONE (12:29)
[2016-08-03] MEDS ORDERED: CHLORHEXIDINE GLUC HIBICLENS 118 ML BTL TP ONE (13:00)
[2016-08-03] MEDS ORDERED: ROPI/epiNEPH/KETOROLAC JOINT COCKTAIL IU ONE (13:00)
[2016-08-03] MEDS ORDERED: CEFAZOLIN 2 GM/DEXTR 100 ML IV ONE (13:00)
[2016-08-03] MEDS ORDERED: POVIDONE-IODINE 20 ML in SODIUM CL IRRIG SOLUTION 500 ML IRR ONE (13:00)
[2016-08-03] MEDS ORDERED: DEXAMETHASONE 4 MG/ML VIAL ONE (13:04)
[2016-08-03] MEDS ORDERED: ONDANSETRON 4 MG/2 ML VIAL ONE ×2 (13:04→13:31)
[2016-08-03] MEDS ORDERED: BISACODYL 10 MG SUPP PR PRN (13:22)
[2016-08-03] MEDS ORDERED: LACTULOSE 20 GM/30 ML UDCUP PO PRN (13:22)
[2016-08-03] MEDS ORDERED: PROMETHAZINE HCL 25 MG SUPPR PR PRN (13:22)
[2016-08-03] MEDS ORDERED: DIPHENOXYLATE/ATROPINE LOMOTIL 1 TAB PO PRN (13:22)
[2016-08-03] MEDS ORDERED: MAGNESIUM HYDROXIDE 30 ML UDCUP PO PRN (13:22)
[2016-08-03] MEDS ORDERED: diphenhydrAMINE 25 MG CAP PO PRN (13:22)
[2016-08-03] MEDS ORDERED: POLYETHYLENE GLYCOL 3350 17 GM PKT PO PRN (13:22)
[2016-08-03] MEDS ORDERED: TEMAZEPAM 15 MG CAP PO PRN (13:22)
[2016-08-03] MEDS ORDERED: PHARMACY PAIN CONSULT 1 EA MISC PRN (13:22)
[2016-08-03] MEDS ORDERED: ONDANSETRON 4 MG/2 ML VIAL IVP PRN ×2 (13:22→13:40)
[2016-08-03] MEDS ORDERED: METOCLOPRAMIDE 10 MG/2 ML VIAL IVP PRN (13:22)
[2016-08-03] MEDS ORDERED: PROMETHAZINE HCL 25 MG/ML INJ IVP PRN (13:22)
[2016-08-03] MEDS ORDERED: ONDANSETRON DISINTEGRATING 4 MG TAB PO PRN (13:22)
[2016-08-03] MEDS ORDERED: SUGAMMADEX SODIUM 200 MG/2 ML VIAL IVP ONE (13:31)
[2016-08-03] MEDS ORDERED: NALOXONE HCL 0.4 MG/ML INJ IVP PRN (13:40)
[2016-08-03] MEDS ORDERED: ALBUTEROL 3 ML DEYVIAL IH PRN (13:40)
[2016-08-03] MEDS ORDERED: LABETALOL HCL 50 MG/10 ML SYR IVP PRN (13:40)
[2016-08-03] MEDS ORDERED: ceFAZolin 2 GM/DEXTROSE 100 ML IV SCH (14:00)
[2016-08-03] MEDS: fentaNYL 100 MCG/2 ML INJ IVP PRN ×4 (14:35→15:00)
--- NOTE | 2016-08-03 14:36 | POSTOPPROG ---
Post Op Note Date of Operation: 08/03/16 Surgeon: Kernoy Vazquez Prime Minister: Brittni Vazquez PAc Anesthesiologist: Prem Anesthesia: GET(General Endotracheal) Pre-op Diagnosis: failed R YEISON Post-op Diagnosis: R YEISON infection Indication: pain Procedure: R hip I&D deep Findings: infection deep Inf/Abcess present in the surg proc area at time of surgery?: Yes Depth: Deep Incisional (Fascial) EBL: 50-100
[2016-08-03] MEDS: HYDROmorphONE/DILAUDID 1 MG/ML SYR IVP PRN ×4 (14:44→15:33)
[2016-08-03] MEDS ORDERED: HYDROmorphONE/DILAUDID 1 MG/ML SYR ONE ×2 (14:44→15:33)
[2016-08-03] MEDS: oxyCODONE IR 5 MG TAB PO PRN ×3 (16:07→23:05)
[2016-08-03] MEDS: LR 1,000 ML IV SCH ×2 (16:08→23:06)
[2016-08-03] MEDS: LEVOTHYROXINE 200 MCG TAB PO SCH (16:38)
[2016-08-03] MEDS: ACETAMINOPHEN 325 MG TAB PO SCH ×2 (18:01→23:04)
[2016-08-03] MEDS: ceFAZolin 2 GM/DEXTROSE 100 ML IV SCH (18:02)
[2016-08-03] MEDS: ASPIRIN 325 MG TAB PO SCH (20:14)
[2016-08-03] MEDS: SENNOSIDES/DOCUSATE SODIUM TAB PO SCH (20:14)
[2016-08-03] MEDS: FAMOTIDINE 20 MG TAB PO SCH (20:14)
[2016-08-04] MEDS: ceFAZolin 2 GM/DEXTROSE 100 ML IV SCH (01:42)
[2016-08-04] MEDS: oxyCODONE IR 5 MG TAB PO PRN ×6 (03:21→21:27)
--- NOTE | 2016-08-04 04:41 | GOP ---
[f rep st] OPERATIVE REPORT DATE OF OPERATION: SURGEON: Shanice Vazquez MD TOOL MARKER: Brittni Vazquez, YOUNG. ANESTHESIA: General. PREOPERATIVE DIAGNOSIS: Right failed total hip arthroplasty. POSTOPERATIVE DIAGNOSIS: Right total hip infection. PROCEDURE PERFORMED: Right total hip irrigation and debridement. FINDINGS: INDICATIONS: The patient is an 85-year-old gentleman, who has had persistent pain, increase in pain over the last couple of weeks, about a year and a half out from a right total hip arthroplasty. Yariel engle previously been doing well, and there was some question as to whether the patient's acetabulum was loose. He had a bone scan, showing increased uptake and the thought was that the acetabular compon ent was loose. He had not been complaining of fevers or chills. He, on preoperative laboratory, valdovinos oniel a slight elevation in white blood cell count at 10.7. His ESR was 20. His CRP was 40. There was not thought that this would be due to infection, so the initial plan was to proceed with acetabular revision. Risks and benefits were discussed with patient, and informed consent was obtained. DESCRIPTION OF PROCEDURE: The patient was identified in the preoperative holding area. His right l ower extremity was marked. He was then brought back to the operating room. After induction of anes thesia, he was positioned on the ARCH Table. He was then prepped and draped in the usual sterile fa shion. A time-out was taken verifying patient, laterality, procedure, IVs, and antibiotic status, a nd he was given 2 g of Ancef. I started with an incision to the prior surgical incision, a direct a nterior approach, dissecting between the TFL and the sartorius, and then down to the PFL and the rec tus and the adductors. I identified the capsule. There was slightly more scar tissue than expected and the capsule was slightly odd in appearance. It seemed glossy and like there might be fluid in the capsule. The capsule was opened and a moderate amount of seropurulent fluid was released. This fluid was sent for Gram stain and culture. A swab of the fluid was also sent for Gram stain and cu lture, and then a tissue from inside the hip joint was sent for Gram stain and culture. Based on un anticipated total hip infection, decision was made to proceed with irrigation and debridement of the right total hip. This was done with dilute Betadine and normal saline. The patient's incision was closed in layers. He was flexed in a sterile dressing, then awakened, and brought to PACU in good condition with well-perfused limb. PLAN: Plan at this time will be to discuss patient with tertiary care facilities for treatment of t his indolence, currently infected right total hip. At this time, the patient will be admitted and s tarted on antibiotics. We will follow up on his labs. /[id number]/MODL
[2016-08-04 05:13] LABS: HEMATOCRIT 35.6 % (40.0-51.0); HEMOGLOBIN 11.5 g/dL (13.7-17.5); MEAN CELL HEMOGLOBIN 25.1 pg (27.9-34.1); MEAN CELL HEMOGLOBIN CONCENTR. 32.3 g/dL (32.4-36.7); MEAN CELL VOLUME 77.6 fL (81.5-99.8); RED BLOOD CELL COUNT 4.59 10^6/uL (4.40-6.38); RED CELL DISTRIBUTION WIDTH 14.8 % (11.5-15.2)
[2016-08-04 05:24] LABS: ANION GAP 9 mEq/L (8-16); CALCIUM 8.8 mg/dL (8.5-10.4); CARBON DIOXIDE 21 mEq/l (22-31); CHLORIDE 103 mEq/L (97-110); CREATININE 0.7 mg/dL (0.7-1.3); GLOMERULAR FILTRATION RATE > 60; GLUCOSE 123 mg/dL (70-100); POTASSIUM 4.6 mEq/L (3.5-5.2); SODIUM 133 mEq/L (134-144)
[2016-08-04] MEDS: ACETAMINOPHEN 325 MG TAB PO SCH ×4 (06:19→23:53)
[2016-08-04] MEDS: LEVOTHYROXINE 200 MCG TAB PO SCH (06:19)
[2016-08-04] MEDS: ASPIRIN 325 MG TAB PO SCH (09:09)
[2016-08-04] MEDS: SENNOSIDES/DOCUSATE SODIUM TAB PO SCH ×2 (09:10→21:28)
[2016-08-04] MEDS: FAMOTIDINE 20 MG TAB PO SCH ×2 (09:10→21:28)
[2016-08-04] MEDS: VANCOMYCIN HCL/NORMAL SALINE 250 ML IV SCH ×2 (12:26→23:53)
--- NOTE | 2016-08-04 15:18 | GCON ---
[f rep st] CONSULTATION INFECTIOUS DISEASE CONSULTATION DATE OF CONSULTATION: 08/04/2016 REFERRING PHYSICIAN: Shanice Vazquez MD REASON FOR CONSULTATION: Right total knee arthroplasty, septic arthritis. 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 Vazquez. Fluctuating right hip pain subsequently became more persistent starting in June of 2016 with increasing pain medicine requirements. Subsequently, patient was evaluated and it was elected that patient would get washout which occurred yesterday 08/03/2016. Intraoperatively there was purulence in the joint and complete washout was performed with joint retention. Cultures are pending but Gram stain is negative for organisms. The patient is without systemic symptoms including no fevers, chills, night sweats. Of note , patient, despite pain in his hip, has continued to be fairly active with swimming and yoga. PAST MEDICAL HISTORY: Allergic rhinitis, BPH, bronchitis, gastroesophageal reflux disease, hyperlipidemia, hypogonadism, hypothyroidism. PAST SURGICAL HISTORY: Appendectomy, right hip replacement. As per HPI, right knee replacement. Tonsillectomy and vasectomy. SOCIAL HISTORY: Current every day alcohol. 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 No tobacco use. He has been 28 years. His is present throughout the exam. Extensive travel history, most recently [place]. FAMILY HISTORY: Positive for breast cancer, coronary artery disease, diabetes, lupus and pancreatic neoplasm. ALLERGIES: The patient denies any antibiotic allergies. Sulfa is listed in his primary care chart. AndroGel causes hives. REVIEW OF SYSTEMS: A complete 10-point review of systems was performed and is negative except as mentioned in the HPI. PHYSICAL EXAMINATION: VITAL SIGNS: Blood pressure 125/65, heart rate 65, respiratory rate 16, saturation 95% on room air, temperature 36.8. GENERAL: This is a very pleasant, vigorous, elderly male in no acute distress. HEENT: Pupils are reactive bilaterally. No conjunctival hemorrhages. Oropharynx: Good dentition. Moist mucous membranes. NECK: Supple. No lymphadenopathy. CARDIOVASCULAR: Regular rate and rhythm. No murmurs, rubs, or gallops. CHEST : Clear to auscultation bilaterally. ABDOMEN: Soft, nontender. Bowel sounds are present. EXTREMITIES: No clubbing, cyanosis, or edema. Right anterior hip incision with dressing in place. No surrounding erythema or swelling. NEUROLOGIC: He is alert and oriented x4. Moving all 4 extremities equally. LABORATORY DATA: White count 12.3, hematocrit 35, platelets of 311. Creatinine is 0.7. No cell count was performed. No blood cultures and hip cultures are all pending with negative Gram stain. ASSESSMENT AND PLAN: This is an 85-year-old male with evidence of septic right total knee arthroplasty, status post washout 08/03/2016 with joint retention. Most likely organisms include Streptococcus and Staphylococcus but microbiologic data is currently still pending. Agree with AFB cultures as well in light of chronic presentation. Reviewed course of treatment with patient and his at bedside including the need for intravenous antibiotics for 4-6 weeks and lifelong suppression with oral antibiotics due to joint retention. Further discussed need for peripherally-inserted central catheter line placement and risks and benefits of this procedure. Finally, reviewed the primary organisms of concern including Staphylococcus and Streptococcus as well as Propionibacterium acnes and empiric therapy initially with IV vancomycin including side effects, including renal toxicity, leukopenia and ototoxicity. All questions were answered, and we will continue to follow patient on a daily basis. Time was 75 minutes, greater than 50% time spent with education and counseling as described above. Thank you for this consultation. /[id number]/MODL MTDD
[2016-08-04 17:04] LABS: ALBUMIN 2.9 g/dL (3.5-5.0); BILIRUBIN,TOTAL 0.5 mg/dL (0.1-1.4); BILIRUBIN-CONJUGATED 0.4 mg/dL (0.0-0.5); BILIRUBIN-UNCONJUGATED 0.1 mg/dL (0.0-1.1); C-REACTIVE PROTEIN 30.4 mg/L (<10.0); TOTAL PROTEIN 5.5 g/dL (6.3-8.2)
--- NOTE | 2016-08-04 18:13 | SOAPPROG ---
SOAP Progress Note Assessment/Plan: Assessment: Paxton is 85 year old male with septic R YEISON POD 1 s/p washout with retained hardware 1) pain management: pain is well managed on oral pain meds 2) VTE ppx: recommend asa, SCDs and KATE hose 3) septic R YEISON: appreciate Dr. Qiu input for IV abx. no growth on cultures yet. Discussed oral abx suppression vs revision YEISON with patient and with another orthopedic surgeon, Dr. Jean. Dr. Jean, Dr. Vazquez, the patient and myself recommend proceeding with oral suppression in hopes of decrease in pain. Patient understands risks and understands lifetime oral abx. 4) d/c planning: most likely to SNF once IV abx have been started and patient is stable. 5) WBAT Plan: 08/04/16 18:09 Subjective: Edgardo is doing well this morning, denies fever and chills, denies SOB, chest pain. states pain has slightly improved Objective: Vital Signs Temp Pulse Resp BP Pulse Ox 36.8 C 58 L 16 116/67 94 08/04/16 15:35 08/04/16 15:35 08/04/16 15:35 08/04/16 15:35 08/04/16 15:35 Microbiology 08/03/16 13:45 Gram Stain - Final Hip - Tissue 08/03/16 13:45 Gram Stain - Final Hip - Tissue 08/03/16 13:45 Gram Stain - Final Hip - Eswab 08/03/16 13:45 Mycobacterial Smear (SANYA) - Final Hip - Tissue Laboratory Results 08/04/16 04:46 08/04/16 04:46 08/03/16 08/04/16 08/05/16 05:59 05:59 05:59 Intake Total 1448 2226 Output Total 782 1275 Balance 798 951 RLE: incision dressing is clean and dry, NVI, +pf/df ICD10 Worksheet Patient Problems: Problems Problem Status Onset Abdominal pain Acute Anorexia Acute Left lower quadrant abdominal tenderness Acute Primary localized osteoarthritis of right hip Acute
[2016-08-04] MEDS: LR 1,000 ML IV SCH (21:31)
[2016-08-05] MEDS: oxyCODONE IR 5 MG TAB PO PRN ×7 (00:04→20:34)
[2016-08-05] MEDS: ACETAMINOPHEN 325 MG TAB PO SCH ×3 (04:46→18:16)
[2016-08-05] MEDS: LEVOTHYROXINE 200 MCG TAB PO SCH (04:47)
[2016-08-05 05:06] LABS: HEMATOCRIT 38.6 % (40.0-51.0); HEMOGLOBIN 12.2 g/dL (13.7-17.5); MEAN CELL HEMOGLOBIN 24.8 pg (27.9-34.1); MEAN CELL HEMOGLOBIN CONCENTR. 31.6 g/dL (32.4-36.7); MEAN CELL VOLUME 78.6 fL (81.5-99.8); RED BLOOD CELL COUNT 4.91 10^6/uL (4.40-6.38); RED CELL DISTRIBUTION WIDTH 15.3 % (11.5-15.2)
[2016-08-05] MEDS: SENNOSIDES/DOCUSATE SODIUM TAB PO SCH ×2 (08:44→20:34)
[2016-08-05] MEDS: ASPIRIN 325 MG TAB PO SCH (08:44)
[2016-08-05] MEDS: CYCLOBENZAPRINE 10 MG TAB PO PRN ×2 (08:44→16:04)
[2016-08-05] MEDS: FAMOTIDINE 20 MG TAB PO SCH ×2 (08:44→20:34)
[2016-08-05] MEDS: VANCOMYCIN HCL/NORMAL SALINE 250 ML IV SCH (12:55)
--- NOTE | 2016-08-05 15:48 | SOAPPROG ---
SOAP Progress Note Assessment/Plan: Assessment: POD 2 s/p R hip I&D s/p YEISON doing well, notes some distal thigh pain discussed plan with abx and pain meds cx are no grow to date will cont to follow them plan for SNF tomorrow appreciate ID input Plan: 08/05/16 15:46 Objective: Vital Signs Temp Pulse Resp BP Pulse Ox 36.9 C 64 18 120/68 92 08/05/16 07:43 08/05/16 07:43 08/05/16 07:43 08/05/16 07:43 08/05/16 07:43 Microbiology 08/03/16 13:45 Gram Stain - Final Hip - Tissue 08/03/16 13:45 Gram Stain - Final Hip - Tissue 08/03/16 13:45 Gram Stain - Final Hip - Eswab Laboratory Results 08/05/16 04:45 08/04/16 04:46 08/04/16 08/05/16 08/06/16 05:59 05:59 05:59 Intake Total 2072 5496 Output Total 650 3225 300 Balance 798 -149 -300 ICD10 Worksheet Patient Problems: Problems Problem Status Onset Chronic Disease Mgmt/Transitional Care Acute Abdominal pain Acute Anorexia Acute Left lower quadrant abdominal tenderness Acute Primary localized osteoarthritis of right hip Acute
--- NOTE | 2016-08-05 19:11 | PCMIDPN ---
Assessment/Plan: Assessment: Right hip prosthetic joint infection. Covered currently empirically with vancomycin monotherapy. Will check vancomycin trough prior to the 4th dose. Patient currently feels better after the washout yesterday. Had a very long talk with the patient, his and son regarding potential etiologies for this infection. Also spoke at length about the limitations of joint fluid culturing and the possibility that we may be treating this empirically the entire time if no culture growth returns. I suspect that this is probably a secondarily infected prosthetic joint due to oral bacteria however this remains theoretical unless proven by culture. Greater than 45 minute spent in the room with family members in discussion. Plan: 1. Continue vancomycin monotherapy. 2. Check vancomycin trough prior to 4th dose. 3. Follow clinical course. 4. Follow culture data. Subjective: Patient is resting in a chair in his hospital room. He notes some discomfort in his right hip if he does not keep up with his pain medication. He also notes that the anterior of his right thigh feels like a sunburn. No other fevers or chills. Objective: Vancomycin #2 Vital Signs Temp Pulse Resp BP Pulse Ox 36.8 C 72 18 109/67 94 08/05/16 16:00 08/05/16 16:00 08/05/16 16:00 08/05/16 16:00 08/05/16 16:00 Microbiology 08/03/16 13:45 Gram Stain - Final Hip - Eswab 08/03/16 13:45 Gram Stain - Final Hip - Tissue 08/03/16 13:45 Gram Stain - Final Hip - Tissue Laboratory Results 08/05/16 04:45 08/04/16 04:46 08/04/16 08/05/16 08/06/16 05:59 05:59 05:59 Intake Total 1448 3076 300 Output Total 650 3225 300 Balance 798 -149 0 C-Reactive Protein 30.4 mg/L (<10.0) H 08/04/16 04:46 - Physical Exam General Appearance: WD/WN, alert, no apparent distress, non-toxic Respiratory: lungs clear, normal breath sounds, No respiratory distress Cardiac/Chest: regular rate, rhythm, No tachycardia Extremities: No non-tender, No normal inspection (Right hip postoperative state. ), No erythema Skin: normal color, warm/dry, No rash Neuro/Psych: alert, normal mood/affect, oriented x 3 ICD10 Worksheet Patient Problems: Problems Problem Status Onset Chronic Disease Mgmt/Transitional Care Acute Abdominal pain Acute Anorexia Acute Left lower quadrant abdominal tenderness Acute Primary localized osteoarthritis of right hip Acute
[2016-08-06] MEDS: CYCLOBENZAPRINE 10 MG TAB PO PRN
[2016-08-06] MEDS: VANCOMYCIN HCL/NORMAL SALINE 250 ML IV SCH ×2 (01:29→11:51)
[2016-08-06 04:58] LABS: HEMATOCRIT 36.3 % (40.0-51.0); HEMOGLOBIN 11.4 g/dL (13.7-17.5); MEAN CELL HEMOGLOBIN 24.6 pg (27.9-34.1); MEAN CELL HEMOGLOBIN CONCENTR. 31.4 g/dL (32.4-36.7); MEAN CELL VOLUME 78.4 fL (81.5-99.8); RED BLOOD CELL COUNT 4.63 10^6/uL (4.40-6.38); RED CELL DISTRIBUTION WIDTH 15.4 % (11.5-15.2)
[2016-08-06] MEDS: ACETAMINOPHEN 325 MG TAB PO SCH ×3 (05:01→11:51)
[2016-08-06] MEDS: oxyCODONE IR 5 MG TAB PO PRN ×5 (05:02→16:26)
[2016-08-06] MEDS: LEVOTHYROXINE 200 MCG TAB PO SCH (05:02)
[2016-08-06 07:16] VITALS: BP 158/79; PULSE 60; RESP 12; TEMP 97.2; O2SAT 91
[2016-08-06] MEDS: FAMOTIDINE 20 MG TAB PO SCH (08:48)
[2016-08-06] MEDS: ASPIRIN 325 MG TAB PO SCH (08:48)
[2016-08-06] MEDS: SENNOSIDES/DOCUSATE SODIUM TAB PO SCH (08:48)
--- NOTE | 2016-08-06 10:25 | SOAPPROG ---
SOAP Progress Note Assessment/Plan: Assessment: POD 3 s/p R hip I&D s/p YEISON doing well, notes some distal ant thigh burning pain discussed plan with abx and pain meds cx are no grow to date will cont to follow them plan for SNF today appreciate ID input f/u [facility] 2 wks Plan: 08/05/16 15:46 08/06/16 10:24 Objective: Vital Signs Temp Pulse Resp BP Pulse Ox 36.2 C 60 12 158/79 H 91 L 08/06/16 07:10 08/06/16 07:10 08/06/16 07:10 08/06/16 07:10 08/06/16 07:10 Microbiology 08/03/16 13:45 Gram Stain - Final Hip - Eswab 08/03/16 13:45 Gram Stain - Final Hip - Tissue 08/03/16 13:45 Gram Stain - Final Hip - Tissue Laboratory Results 08/06/16 04:26 08/04/16 04:46 08/05/16 08/06/16 08/07/16 05:59 05:59 05:59 Intake Total 3076 1150 Output Total 6590 1679 200 Balance -149 -525 -200 ICD10 Worksheet Patient Problems: Problems Problem Status Onset Chronic Disease Mgmt/Transitional Care Acute Abdominal pain Acute Anorexia Acute Left lower quadrant abdominal tenderness Acute Primary localized osteoarthritis of right hip Acute
--- NOTE | 2016-08-06 11:19 | PDIAF ---
- Diagnosis Diagnosis: septic arthritis in setting of R YEISON Code Status: Full Code - Medication Management Discharge Medications: Medications to Continue on Transfer Docusate Sodium [Colace 100 MG (*)] 100 mg PO BID 07/25/16 [Last Taken 08/02/16] Levothyroxine [Synthroid 200 mcg (*)] 200 mcg PO DAILY06 07/25/16 [Last Taken ] Nortriptyline HCl [Pamelor 25 mg (*)] 25 mg PO HS PRN 07/25/16 [Last Taken 07/27] Acetaminophen [Tylenol 325mg (*)] 650 mg PO Q6HRS #0 tab 08/06/16 [Last Taken Unknown] Aspirin [Aspirin 325 mg (*)] 325 mg PO DAILY #0 tab 08/06/16 [Last Taken Unknown ] Cyclobenzaprine [Flexeril 10 MG (*)] 10 mg PO Q8HRS PRN #0 tab 08/06/16 [Last Taken Unknown] Sennosides/Docusate Sodium [Senokot-S] 1 - 2 tab PO BID #0 tab 08/06/16 [Last Taken Unknown] Vancomycin HCl/Normal Saline [Vancomycin 1 gm (Premix)] 1 g IV Q12H #0 bag 08/06 [Last Taken Unknown] celeCOXIB [Celebrex (*)] 200 mg PO DAILY #0 cap 08/06/16 [Last Taken Unknown] diphenhydrAMINE [Benadryl 25 MG (*)] 25 mg PO Q4HRS PRN #0 cap 08/06/16 [Last Taken Unknown] oxyCODONE IR [Oxycodone Ir (*)] 5 - 10 mg PO Q3HRS PRN #0 tab 08/06/16 [Last Taken Unknown] Longterm Antibiotics: yes per infectious disease recommendations Discharge Medications: Refer to the Discharge Home Medication list for PRN reason. PICC Care - Routine: Yes - Orders Diet Recommendation: no restrictions on diet Wound Care Instructions: if drainage occurs, please call Dr. Vazquez's office at [phone] Sutures/[place] Site: n/a Activity/Weight Bearing Restrictions: WBAT, recommend FWW until patient returns for follow up with Dr Vazquez in 2 weeks Equipment: FWW - Labs/Radiology Vanco Trough Date and Time: per infectious disase recommendations Call or Fax Lab and Imaging Results to: DR. Vazquez - Follow Up Care Current Providers and Referrals: Sarah Jaeger MD [Primary Care Provider] -
[2016-08-06] MEDS ORDERED: ALTEPLASE 2 MG VIAL IVP PRN (12:06)
--- NOTE | 2016-08-06 12:10 | PDIAF ---
- Diagnosis Diagnosis: septic arthritis in setting of R YEISON Code Status: Full Code - Medication Management Discharge Medications: Medications to Continue on Transfer Docusate Sodium [Colace 100 MG (*)] 100 mg PO BID 07/25/16 [Last Taken 08/02/16] Levothyroxine [Synthroid 200 mcg (*)] 200 mcg PO DAILY06 07/25/16 [Last Taken ] Nortriptyline HCl [Pamelor 25 mg (*)] 25 mg PO HS PRN 07/25/16 [Last Taken 07/27] Acetaminophen [Tylenol 325mg (*)] 650 mg PO Q6HRS #0 tab 08/06/16 [Last Taken Unknown] Aspirin [Aspirin 325 mg (*)] 325 mg PO DAILY #0 tab 08/06/16 [Last Taken Unknown ] Cyclobenzaprine [Flexeril 10 MG (*)] 10 mg PO Q8HRS PRN #0 tab 08/06/16 [Last Taken Unknown] Sennosides/Docusate Sodium [Senokot-S] 1 - 2 tab PO BID #0 tab 08/06/16 [Last Taken Unknown] Vancomycin HCl/Normal Saline [Vancomycin 1 gm (Premix)] 1 g IV Q12H #0 bag 08/06 [Last Taken Unknown] celeCOXIB [Celebrex (*)] 200 mg PO DAILY #0 cap 08/06/16 [Last Taken Unknown] diphenhydrAMINE [Benadryl 25 MG (*)] 25 mg PO Q4HRS PRN #0 cap 08/06/16 [Last Taken Unknown] oxyCODONE IR [Oxycodone Ir (*)] 5 - 10 mg PO Q3HRS PRN #0 tab 08/06/16 [Last Taken Unknown] Health Technical Writer Antibiotics: Vancomycin 1 g IV q 12 hours Health Technical Writer Antibiotic Stop Date: 09/14/16 Discharge Medications: Refer to the Discharge Home Medication list for PRN reason. PICC Care - Routine: Yes - Orders Services needed: Registered Nurse Diet Recommendation: no restrictions on diet Wound Care Instructions: if drainage occurs, please call Dr. Vazquez's office at [phone] Sutures/[place] Site: n/a Activity/Weight Bearing Restrictions: WBAT, recommend FWW until patient returns for follow up with Dr Vazquez in 2 weeks Equipment: FWW - Labs/Radiology CBC Date: 08/08/16 (weekly q mon) CMP Date: 08/08/16 (weekly q mon) Creatinine Date: 08/11/16 (weekly q ) Vanco Trough Date and Time: 08/08/16 and then q mon and th thereafter Call or Fax Lab and Imaging Results to: DR. Vazquez; Dr. Yan Ellis - Follow Up Care Current Providers and Referrals: Sarah Jaeger MD [Primary Care Provider] -
--- NOTE | 2016-08-06 17:22 | PCMIDPN ---
Assessment/Plan: Assessment: Right hip prosthetic joint infection. Covered currently empirically with vancomycin monotherapy. Will check vancomycin trough prior to the 4th dose. Patient currently feels better after the washout early in his stay. No growth in culture to this point. Will continue the vancomycin monotherapy as an outpatient at his rehab facility. Follow-up in office in 10-14 days. Vancomycin trough of 10.4 is reasonable at this point. Will continue to monitor. Plan for a total of a 6 week course of IV antibiotic treatment followed by oral antibiotic suppression. Inclined to use an oral beta-lactam such as Keflex given suspicion of oral kathleen. Plan: 1. Continue vancomycin monotherapy. 2. Follow clinical course. 3. Discharge to [facility]. 4. Follow up in clinic in 7-14 days. 08/06/16 17:20 Subjective: Patient is sitting up in his chair in his hospital room. He has no new complaints. His pain is under reasonable control his right hip. No fevers or chills. Tolerating vancomycin with no rash or diarrhea. Objective: Vancomycin # 2 Vital Signs Temp Pulse Resp BP Pulse Ox 36.2 C 60 12 158/79 H 91 L 08/06/16 07:10 08/06/16 07:10 08/06/16 07:10 08/06/16 07:10 08/06/16 07:10 Microbiology 08/03/16 13:45 Gram Stain - Final Hip - Tissue 08/03/16 13:45 Gram Stain - Final Hip - Tissue 08/03/16 13:45 Gram Stain - Final Hip - Eswab Laboratory Results 08/06/16 04:26 08/04/16 04:46 08/05/16 08/06/16 08/07/16 05:59 05:59 05:59 Intake Total 3076 1150 Output Total 5913 6395 1000 Balance -149 -525 -1000 C-Reactive Protein 30.4 mg/L (<10.0) H 08/04/16 04:46 - Physical Exam General Appearance: WD/WN, alert, no apparent distress, non-toxic Respiratory: lungs clear, normal breath sounds, No respiratory distress Cardiac/Chest: regular rate, rhythm, No tachycardia Extremities: non-tender, normal inspection Skin: normal color, warm/dry, No rash Neuro/Psych: alert, normal mood/affect ICD10 Worksheet Patient Problems: Problems Problem Status Onset Chronic Disease [facility]/Transitional Care Acute History of total right hip arthroplasty Acute Septic arthritis Acute Abdominal pain Acute Anorexia Acute Left lower quadrant abdominal tenderness Acute Primary localized osteoarthritis of right hip Acute
--- NOTE | 2016-08-10 09:04 | PQFORM ---
PHYSICIAN QUERY FORM Needs Your Response This query form is being sent to you to assure this patient record is coded properly. Please respond to the question below: CRITICAL POWER TECHNICIAN QUESTION: Dr. Vazquez, For coding purposes (there is a different code choice for excisional versus non excisional debridement)- please clarify if the debridement done on 03 August 2016 was: ___~ Excisional __x_~ Non Excisional ___~ Other Thank You REINA Gutierrez [facility]/Coding Dept. [phone] INSTRUCTIONS FOR RESPONSE: Answer question by clicking on the "Edit Document" button. Move cursor to area below the stars. When complete, hit "Save." Click on the "Sign" button, then click "Sign" again. Type in your PIN and hit "Enter." MTDD
== END 2016-08-06 17:20 | DRG 560 ==
LOC: F3N 11:16
PROVIDERS: ADMIT Orthopaedic Surgery; ATTEND Orthopaedic Surgery
PROC: 3E1U38Z Irrigation of Joints using Irrigating Substance, Percutaneous Approach (ICD-10-PCS; principal; 2016-08-06)
PROC: 02HV33Z Insertion of Infusion Device into Superior Vena Cava, Percutaneous Approach (ICD-10-PCS; 2016-08-06)
DX: T84.51XA Infection and inflammatory reaction due to internal right hip prosthesis, initial encounter (principal); M00.861 Arthritis due to other bacteria, right knee; N40.0 Benign prostatic hyperplasia without lower urinary tract symptoms; K21.9 Gastro-esophageal reflux disease without esophagitis; E78.5 Hyperlipidemia, unspecified; E03.9 Hypothyroidism, unspecified; Z96.651 Presence of right artificial knee joint; Z96.641 Presence of right artificial hip joint
CPT/HCPCS: 97116-GP; 97161-GP; 97165-GO; 97535-GO; C1751; G8978-GP-CI; G8979-GP-CI; G8987-GO-CK; G8988-GO-CI; J0171; J0690; J1100; J1170; J1885; J2405; J2704; J2795; J3010; J3370

== ENCOUNTER 2016-10-28 18:47 | Emergency (ER) | payer OTHER ==
[2016-10-28 19:38] VITALS: BP 135/74; PULSE 77; RESP 18; TEMP 98.2; O2SAT 93
--- NOTE | 2016-10-28 20:50 | EDPHY ---
HPI/HX/ROS/PE/MDM Narrative: CHIEF COMPLAINT: Rib pain, dizziness HPI: The patient is an 86 y/o male arriving with his complaining of vertigo and rib pain secondary to a fall and concussion last week while in [place], [place]. He tripped on a curb and struck his head on the ground and required a 1-day admission to the local hospital. His headaches have improved, but he continues to have significant room-spinning dizziness when changing position since the fall. He also complains of rib pain and reports he had two chest CTs that confirmed rib fractures during his admission. His pain is aggravated by movement and positioning. He is primarily here seeking help controlling his rib pain as using oxycodone every 4 hours is not effective. He is not requesting further work up for his concussion and vertigo. REVIEW OF SYSTEMS: Aside from elements discussed in the HPI, a comprehensive 10-point review of systems was reviewed and is negative. PMH: Recent hip replacement by Dr. Vazquez; prostate issues; concussion 10/22/16 SOCIAL HISTORY: at bedside. 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 Lives near [place]. PCP: Dr. Jaeger at [facility]. ID: Dr. Ellis PHYSICAL EXAM: General:Patient is alert, in no acute distress. Head: Sutures on right forehead. ENT:Eyes are normal to inspection. ENT inspection normal. Neck: Normal inspection. Full range of motion. Respiratory:No respiratory distress. Breath sounds normal bilaterally. Cardiovascular: Regular rate and rhythm. Strong peripheral pulses. Normal cap refill. Abdomen:The abdomen is nontender to palpation. There are no peritoneal signs. Back: Normal to inspection. No tenderness to palpation. Skin: Normal color. No rash. Warm and dry. Extremities: Normal appearance. Full range of motion. Neuro: Oriented x3. Normal motor function. Normal sensory function. MDM: This patient presents essentially for a refill of pain medications to help him deal with pain of rib fractures. He has already undergone numerous CTs of chest and head at outside hospital, and does not report any real change in symptoms, so I think repeat imaging is likely unnecessary, and patient agrees. We discussed strict return precautions. General Time Seen by Provider: 10/28/16 20:35 Initial Vital Signs: Initial Vital Signs Temperature (C) 36.8 C 10/28/16 19:33 Heart Rate 77 10/28/16 19:33 Respiratory Rate 18 10/28/16 19:33 Blood Pressure 135/74 H 10/28/16 19:33 O2 Sat (%) 93 10/28/16 19:33 O2 Delivery Mode Room Air Allergies/Adverse Reactions: Sulfa (Sulfonamide Antibiotics) Allergy (Unknown, Verified 10/28/16 19:38) Home Medications: Medication Instructions Recorded Docusate Sodium [Colace 100 MG (*)] 100 mg PO BID 07/25/16 Levothyroxine [Synthroid 200 mcg 200 mcg PO DAILY06 07/25/16 (*)] Nortriptyline HCl [Pamelor 25 mg 25 mg PO HS PRN 07/25/16 (*)] Acetaminophen [Tylenol 325mg (*)] 650 mg PO Q6HRS #0 tab 08/06/16 Sennosides/Docusate Sodium 1 - 2 tab PO BID #0 tab 08/06/16 [Senokot-S] oxyCODONE IR [Oxycodone Ir (*)] 5 - 10 mg PO Q3HRS PRN #0 tab 08/06/16 oxyCODONE/APAP 5/325 [Percocet 1 - 2 tab PO Q4H PRN #30 tab 10/28/16 5/325 (*)] Departure - Departure Disposition: Home, Routine, Self-Care Clinical Impression: Rib fractures, Visit for suture removal Condition: Good Instructions: Stitches Removal (ED), Rib Fracture (ED) Additional Instructions: 1. Take 600mg ibuprofen every 6-8 hours for pain and inflammation over the next 4-5 days and consult with your PCP for prolonged use of ibuprofen. 2. Use Oxycodone as prescribed as needed for severe pain. This medication can make you drowsy. 3. Follow up with your primary care provider on Monday. 4. Return to the ED for any worsening of condition. Referrals: Sarah Jaeger MD [Primary Care Provider] - As per Instructions Prescriptions: oxyCODONE/APAP 5/325 [Percocet 5/325 (*)] 1 - 2 tab PO Q4H PRN #30 tab PRN Reason: Pain, Severe Report Scribed for: Arcenio Rodrigues Report Scribed by: Irina Hutton Date of Report: 10/28/16 Time of Report: 20:50 Physician Review and Approval Statement: Portions of this note were transcribed by an ED scribe. I personally performed the history, physical exam, and medical decision making; and confirm the accuracy of the information in the transcribed note.
[2016-10-28] MEDS ORDERED: OXYCODONE/APAP 5/325MG PREPACK#4 BTL TAKEHOME ONE (20:57)
== END 2016-10-28 21:31 | disposition home or self-care (01) ==
DX: S22.49XA Multiple fractures of ribs, unspecified side, initial encounter for closed fracture (principal); Z48.02 Encounter for removal of sutures; W10.1XXA Fall (on)(from) sidewalk curb, initial encounter; Y92.480 Sidewalk as the place of occurrence of the external cause

== ENCOUNTER → 2017-10-20 | Outpatient (CLI) | payer OTHER | LOC: FIMAGING 09:40 | PROVIDERS: ATTEND Family Medicine | DX: Z13.6 Encounter for screening for cardiovascular disorders (principal); I25.10 Atherosclerotic heart disease of native coronary artery without angina pectoris ==

== ENCOUNTER 2018-02-22 15:19 | Emergency (ER) | payer OTHER ==
--- NOTE | 2018-02-22 15:31 | EDPHY ---
HPI/HX/ROS/PE/MDM Narrative: CHIEF COMPLAINT: Fatigue, weakness HPI: This patient is an 87 year old male with history of BPH, hypothyroid. He arrives today with his , complaining of overall fatigue and weakness. This has been ongoing for several months. In the past few weeks, his symptoms have become more severe and he endorses dizziness and a "haze" in his vision as well as sensitivity to bright lights. 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 He denies any focal neuro deficits. He does note that he discontinued his testosterone cream 7 days ago and has had decreased energy since then. Yesterday his symptoms were particularly severe so he called his PCP's office and staff there referred him to the emergency department for further evaluation. He denies fever, chest pain , shortness of breath, other associated symptoms. He denies personal or family history of heart disease. REVIEW OF SYSTEMS: A comprehensive 10 system review of systems is otherwise negative aside from elements mentioned in the history of present illness and medical decision making. PMH: 1. BPH. 2. Hypothyroid. 3. History of diverticulitis. 4. Orthopedic surgeries (the patient takes 500mg amoxicillin QD for infection following his hip replacement. Follows up with Dr. Ellis, infectious disease specialist). 5. GERD. 6. Hiatal hernia. SOCIAL HISTORY: at bedside. 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 PHYSICAL EXAM: General:Patient is alert, in no acute distress. ENT:Eyes are normal to inspection. ENT inspection normal. Neck: Normal inspection. Full range of motion. Respiratory:No respiratory distress. Breath sounds normal bilaterally. Cardiovascular: Regular rate and rhythm. Strong peripheral pulses. Normal cap refill. Abdomen:The abdomen is nontender to palpation. There are no peritoneal signs. There are normal bowel sounds. Back: Normal to inspection. No tenderness to palpation. Skin: Normal color. No rash. Warm and dry. Extremities: Normal appearance. Full range of motion. Neuro: Oriented x3. Normal motor function. Normal sensory function. ED Course: 87 year old male presents with fatigue and generalized weakness ongoing for several months. He is concerned for cardiac or endocrine etiology of his symptoms. Plan for labs including CBC, chemistries, liver panel, troponin, TSH. Plan for EKG, chest x-ray, POC troponin. EKG was ordered and interpreted by myself. Please see [employer] system for official reading. Sinus rhythm. Chest x-ray shows evidence of possible bronchitis, underlying lung disease. Labs largely unremarkable. Troponin negative. 17:45 Reassessed. Discussed imaging and laboratory results. Plan for CT head for further evaluation. 18:[address] Jacinto, radiologist. CT head is negative for acute processes. 18:40 Reassessed patient. Discussed results. He will follow up with his primary care provider for further evaluation and for possible sleep study to evaluate for obstructive sleep apnea. Plan to discharge patient home in good condition. Follow up and return precautions discussed. He and his are comfortable with this plan. MDM: This patient presents with fatigue and decreased energy that has been present for months. We performed an extensive workup including CTH, ECG, troponin and labs - all of which are negative. There is no evidence for significant anemia, infectious process, CVA, ACS, hypothyroidism. - Data Points Imaging Results: Imaging Impressions Chest X-Ray 02/22/18 16:04 Impression: Central bronchitis and underlying COPD. Head CT 02/22/18 17:55 Impression: 1. No acute intracranial findings. 2. Diffuse cerebral atrophy with periventricular and subcortical low attenuation consistent with chronic microvascular ischemic gliosis. 3. 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 Findings discussed with Arcenio Rodrigues MD 02/22/2018 at 18:28. Imaging: I viewed and interpreted images myself Laboratory Results: Laboratory Results 02/22/18 15:48 02/22/18 15:48 02/22/18 02/22/18 02/22/18 16:18 15:48 15:48 WBC 7.76 10^3/uL 10^3/uL (3.80-9.50) RBC 5.61 10^6/uL 10^6/uL (4.40-6.38) Hgb 14.4 g/dL g/dL (13.7-17.5) Hct 44.4 % % (40.0-51.0) MCV 79.1 fL L fL (81.5-99.8) MCH 25.7 pg L pg (27.9-34.1) MCHC 32.4 g/dL g/dL (32.4-36.7) RDW 15.6 % H % (11.5-15.2) Plt Count 277 10^3/uL 10^3/uL (150-400) MPV 9.2 fL fL (8.7-11.7) Neut % (Auto) 59.0 % % (39.3-74.2) Lymph % (Auto) 24.9 % % (15.0-45.0) [place] % (Auto) 10.1 % % (4.5-13.0) Eos % (Auto) 5.0 % % (0.6-7.6) Baso % (Auto) 0.9 % % (0.3-1.7) Nucleat RBC Rel Count 0.0 % % (0.0-0.2) Absolute Neuts (auto) 4.58 10^3/uL 10^3/uL (1.70-6.50) Absolute Lymphs (auto) 1.93 10^3/uL 10^3/uL (1.00-3.00) Absolute Monos (auto) 0.78 10^3/uL 10^3/uL (0.30-0.80) Absolute Eos (auto) 0.39 10^3/uL 10^3/uL (0.03-0.40) Absolute Basos (auto) 0.07 10^3/uL 10^3/uL (0.02-0.10) Absolute Nucleated RBC 0.00 10^3/uL 10^3/uL (0-0.01) Immature Gran % 0.1 % % (0.0-1.1) Immature Gran # 0.01 10^3/uL 10^3/uL (0.00-0.10) Sodium 139 mEq/L mEq/L (135-145) Potassium 4.3 mEq/L mEq/L (3.5-5.2) Chloride 108 mEq/L mEq/L (97-110) Carbon Dioxide 21 mEq/l L mEq/l (22-31) Anion Gap 10 mEq/L mEq/L (6-14) BUN 17 mg/dL mg/dL (7-23) Creatinine 0.9 mg/dL mg/dL (0.7-1.3) Estimated GFR > 60 Glucose 109 mg/dL H mg/dL (70-100) Calcium 9.3 mg/dL mg/dL (8.5-10.4) Total Bilirubin 0.4 mg/dL mg/dL (0.1-1.4) Conjugated Bilirubin 0.3 mg/dL mg/dL (0.0-0.5) Unconjugated Bilirubin 0.1 mg/dL mg/dL (0.0-1.1) AST 28 IU/L IU/L (17-59) ALT 32 IU/L IU/L (21-72) Alkaline Phosphatase 81 IU/L IU/L (38-126) POC Troponin I 0.00 ng/mL ng/mL (0.00-0.08) Total Protein 7.3 g/dL g/dL (6.3-8.2) Albumin 4.3 g/dL g/dL (3.5-5.0) TSH 0.445 uIU/mL L uIU/mL (0.465-4.680) Point of Care Test Results: Chemistry 02/22/18 16:18 POC Troponin I 0.00 ng/mL ng/mL (0.00-0.08) General Time Seen by Provider: 02/22/18 15:30 Initial Vital Signs: Initial Vital Signs Temperature (C) 36.6 C 02/22/18 15:24 Heart Rate 68 02/22/18 15:24 Respiratory Rate 18 02/22/18 15:24 Blood Pressure 132/76 H 02/22/18 15:24 O2 Sat (%) 94 02/22/18 15:24 O2 Delivery Mode Room Air Allergies/Adverse Reactions: No Known Allergies Allergy (Unverified 02/22/18 15:22) Home Medications: Medication Instructions Recorded Docusate Sodium [Colace 100 MG (*)] 100 mg PO BID 07/25/16 Levothyroxine [Synthroid 200 mcg 200 mcg PO DAILY06 07/25/16 (*)] Acetaminophen [Tylenol 325mg (*)] 650 mg PO Q6HRS #0 tab 08/06/16 Sennosides/Docusate Sodium 1 - 2 tab PO BID #0 tab 08/06/16 [Senokot-S] oxyCODONE IR [Oxycodone Ir (*)] 5 - 10 mg PO Q3HRS PRN #0 tab 08/06/16 Xanax 0.5 MG (*) 02/22/18 Departure - Departure Disposition: Home, Routine, Self-Care Clinical Impression: Fatigue Condition: Good Instructions: Fatigue (ED) Additional Instructions: Follow up with your primary care provider for further evaluation as we discussed. You may wish to discuss a sleep study for obstructive sleep apnea as well. Stay well hydrated. Return to the emergency department for fever, chest pain, shortness of breath, or other worsening of condition. Referrals: Sarah Jaeger MD [Primary Care Provider] - As per Instructions Report Scribed for: Arcenio Rodrigues Report Scribed by: Jody Bragg Date of Report: 02/22/18 Time of Report: 15:31 Physician Review and Approval Statement: Portions of this note were transcribed by an ED scribe. I personally performed the history, physical exam, and medical decision making; and confirm the accuracy of the information in the transcribed note.
--- NOTE | 2018-02-22 16:05 | CPEKG ---
Test Reason : OPEN Blood Pressure : / mmHG Vent. Rate : 073 BPM Atrial Rate : 073 BPM P-R Int : 208 ms QRS Dur : 105 ms QT Int : 390 ms P-R-T Axes : 019 069 -17 degrees QTc Int : 430 ms Sinus rhythm Confirmed by Arcenio Rodrigues ([id number]) on 02/22/2018 4:04:29 PM Referred By: Confirmed By:Arcenio Rodrigues
[2018-02-22 16:08] LABS: PLATELET COUNT 277 10^3/uL (150-400)
[2018-02-22 19:13] VITALS: BP 110/70
== END 2018-02-22 19:16 | disposition home or self-care (01) ==
DX: R53.83 Other fatigue (principal); N40.0 Benign prostatic hyperplasia without lower urinary tract symptoms; E78.5 Hyperlipidemia, unspecified; E03.9 Hypothyroidism, unspecified
CPT/HCPCS: 84484-ER

== ENCOUNTER → 2018-03-06 | Outpatient (CLI) | payer OTHER | LOC: FIMAGING 12:32 | PROVIDERS: ATTEND Orthopaedic Surgery Sports Medicine | DX: Z01.818 Encounter for other preprocedural examination (principal); M19.011 Primary osteoarthritis, right shoulder ==